=== PATIENT | female | born 1985 | race Caucasian/White ===

== ENCOUNTER 2016-12-16 18:44 | Emergency (ER) | payer BC ==
[2016-12-16 19:52] VITALS: BP 121/80
--- NOTE | 2016-12-16 20:16 | EDM.PDOC ---
ED HPI GI/ABDOMINAL - General Chief Complaint: Gastrointestinal Problem Stated Complaint: SHARP PAIN IN STOMACH,PASSING BLOOD IN URINE Time Seen by Provider: 12/16/16 19:55 Source of Information: Reports: Patient History Limitations: Reports: No limitations - History of Present Illness INITIAL COMMENTS - FREE TEXT/NARRATIVE: This 31 yo female patient reports to the ED due to abdominal pains and blood in the toilet. The patient reports she was at work at 1830 when she had some abdominal paint. The patient reports she went to the bathroom (BM and urine) and noticed blood in the stool after using the bathroom. The patient reports she does not have any pain at this time. The patient reports her last menstrual cycle was ended on 11/18/16. The patient reports that there is always a chance of . Symptom Onset Date: 12/16/16 Symptom Onset Time: 18:30 Timing/Duration: Reports: Resolved prior to arrival Location: generalized Quality: Reports: ache Severity: moderate - Related Data Allergies/ADRs: Allergies Allergy/AdvReac Type Severity Reaction Status Date / Time guaifenesin [From Mucinex] Allergy Lightheaded Verified 12/16/16 18:58 ness Home Meds: Home Meds . 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 OB/BYN History: misscarriage 8 years ago Musculoskeletal History: Reports: None Neurological History: Reports: None Psychiatric History: Reports: None Endocrine/Metabolic History: Reports: Obesity/BMI 30+ Hematologic History: Reports: None Immunologic History: Reports: None Oncologic (Cancer) History: Reports: None Dermatologic History: Reports: None - Infectious Disease History Infectious Disease History: Reports: Chicken pox - Past Surgical History Head Surgeries/Procedures: Reports: None Social & Family History - Family History Family Medical History: Noncontributory - Tobacco Use Smoking Status *Q: Never Smoker Second Hand Smoke Exposure: No - Caffeine Use Caffeine Use: Reports: None - Recreational Drug Use Recreational Drug Use: No - Sexual History Sexual History: Reports: Sexually active - Living Situation & Occupation Living situation: Reports: , with family Occupation: employed ED ROS GENERAL - Review of Systems Review Of Systems: ROS reveals no pertinent complaints other than HPI. ED EXAM, GI/ABD - Physical Exam Exam: See Below Exam Limited By: No limitations General Appearance: alert, WD/WN, no apparent distress Eyes: bilateral: normal appearance, EOMI Ears: normal external exam, normal canal, hearing grossly normal, normal TMs Nose: normal inspection, normal mucosa, no blood Throat/Mouth: Normal inspection, Normal lips, Normal teeth, Normal gums, Normal oropharynx, Normal voice, No airway compromise Head: atraumatic, normocephalic Neck: normal inspection, supple, non-tender, full range of motion Respiratory/Chest: no respiratory distress, lungs clear, normal breath sounds, no accessory muscle use, chest non-tender Cardiovascular: normal peripheral pulses, regular rate, rhythm, no edema, no gallop, no JVD, no murmur, no rub GI/Abdominal: normal bowel sounds, soft, non tender, no organomegaly, no distention, no abnormal bruit, no mass (Female) Exam: Deferred Rectal (Female) Exam: Normal rectal tone, Heme + stool, Hemorrhoids Back Exam: normal inspection, full range of motion, NT Extremities: normal inspection, normal range of motion, non-tender, normal capillary refill, no pedal edema Neurological: alert, oriented, CN II-XII intact, normal cognition, normal gait, normal reflexes, no motor/sensory deficits Psychiatric: normal affect, normal mood Skin Exam: Warm, Dry, Intact, Normal color, No rash Lymphatic: no adenopathy Course - Vital Signs Last Recorded V/S: Last Vital Signs Temp 36.3 C 12/16/16 19:51 Pulse 70 12/16/16 19:51 Resp 18 12/16/16 19:51 BP 121/80 12/16/16 19:51 Pulse Ox 98 12/16/16 19:51 - Orders/Labs/Meds Labs: Laboratory Tests 12/16/16 12/16/16 12/16/16 Range/Units 20:08 20:08 20:18 WBC 9.4 (5.0-10.0) 10^3/uL RBC 4.49 (4.2-5.4) 10^6/uL Hgb 13.1 (12.0-16.0) g/dL Hct 38.6 (37.0-47.0) % MCV 86.0 (80-100) fL MCH 29.2 (27.0-34.0) pg MCHC 33.9 (33.0-35.0) g/dL Plt Count 202 (150-450) 10^3/uL Neut % (Auto) 55.9 (42.2-75.2) % Lymph % (Auto) 32.5 (20.5-50.1) % [place] % (Auto) 9.7 H (2-8) % Eos % (Auto) 1.7 (1.0-3.0) % Baso % (Auto) 0.2 (0.0-1.0) % Sodium (135-145) mmol/L Potassium (3.6-5.0) mmol/L Chloride (101-111) mmol/L Carbon Dioxide (21.0-31.0) mmol/L Anion Gap BUN (7-18) mg/dL Creatinine (0.6-1.3) mg/dL Est Cr Clr Drug Dosing mL/min Estimated GFR (MDRD) BUN/Creatinine Ratio Glucose (74-105) mg/dL Calcium (8.4-10.2) mg/dl Total Bilirubin (0.2-1.0) mg/dL AST (10-42) IU/L ALT (10-60) IU/L Alkaline Phosphatase (42-121) IU/L Total Protein (6.7-8.2) g/dl Albumin (3.2-5.5) g/dl Globulin Albumin/Globulin Ratio Urine Color Yellow (YELLOW) Urine Appearance Slightly cloudy (CLEAR) Urine pH 6.5 (5.0-9.0) Ur Specific [place] 1.015 (1.005-1.030) Urine Protein Negative (NEGATIVE) Urine Glucose (UA) Negative (NEGATIVE) Urine Ketones Negative (NEGATIVE) Urine Occult Blood Negative (NEGATIVE) Urine Nitrite Negative (NEGATIVE) Urine Bilirubin Negative (NEGATIVE) Urine Urobilinogen 0.2 (0.2-1.0) mg/dL Ur Leukocyte Esterase Negative (NEGATIVE) Urine RBC 0-5 /HPF Urine WBC 0-5 (0-5/HPF) /HPF Ur Epithelial Cells Few /HPF Urine Bacteria Few (0-FEW/HPF) /HPF Urine HCG, Qual Negative 12/16/16 Range/Units 20:18 WBC (5.0-10.0) 10^3/uL RBC (4.2-5.4) 10^6/uL Hgb (12.0-16.0) g/dL Hct (37.0-47.0) % MCV (80-100) fL MCH (27.0-34.0) pg MCHC (33.0-35.0) g/dL Plt Count (150-450) 10^3/uL Neut % (Auto) (42.2-75.2) % Lymph % (Auto) (20.5-50.1) % [place] % (Auto) (2-8) % Eos % (Auto) (1.0-3.0) % Baso % (Auto) (0.0-1.0) % Sodium 137 (135-145) mmol/L Potassium 4.0 (3.6-5.0) mmol/L Chloride 100 L (101-111) mmol/L Carbon Dioxide 30.0 (21.0-31.0) mmol/L Anion Gap 11.0 BUN 19 H (7-18) mg/dL Creatinine 0.9 (0.6-1.3) mg/dL Est Cr Clr Drug Dosing 72.29 mL/min Estimated GFR (MDRD) > 60 BUN/Creatinine Ratio 21.11 Glucose 100 (74-105) mg/dL Calcium 9.3 (8.4-10.2) mg/dl Total Bilirubin 0.2 (0.2-1.0) mg/dL AST 19 (10-42) IU/L ALT 22 (10-60) IU/L Alkaline Phosphatase 69 (42-121) IU/L Total Protein 7.5 (6.7-8.2) g/dl Albumin 4.4 (3.2-5.5) g/dl Globulin 3.1 Albumin/Globulin Ratio 1.42 Urine Color (YELLOW) Urine Appearance (CLEAR) Urine pH (5.0-9.0) Ur Specific [place] (1.005-1.030) Urine Protein (NEGATIVE) Urine Glucose (UA) (NEGATIVE) Urine Ketones (NEGATIVE) Urine Occult Blood (NEGATIVE) Urine Nitrite (NEGATIVE) Urine Bilirubin (NEGATIVE) Urine Urobilinogen (0.2-1.0) mg/dL Ur Leukocyte Esterase (NEGATIVE) Urine RBC /HPF Urine WBC (0-5/HPF) /HPF Ur Epithelial Cells /HPF Urine Bacteria (0-FEW/HPF) /HPF Urine HCG, Qual Departure - Departure Time of Disposition: 21:14 Disposition: Home, Self-Care 01 Condition: fair Clinical Impression: Hemorrhoid thrombosis Instructions: Hemorrhoids, [id number] Forms: ED Department Discharge Care Plan Goals: The patient was advised of the examination and lab results during the visit. The patient was encouraged to use Preparation H and Tucks medicated pads to help reduce the hemorrhoidal tissue. If the patient has any additional symptoms or concerns, the patient should follow-up with her primary care facility or return to the emergency department.
[2016-12-16 20:42] LABS: CHLORIDE,CL 100 mmol/L (101-111); SODIUM,NA 137 mmol/L (135-145)
== END 2016-12-16 21:24 | disposition home or self-care (01) ==
LOC: DL.ED 18:44
DX: K64.5 Perianal venous thrombosis (principal); E66.9 Obesity, unspecified; Z88.8 Allergy status to other drugs, medicaments and biological substances
CPT/HCPCS: 36415; 80053; 81001; 81025; 82272; 85025; 99283

== ENCOUNTER 2018-03-27 20:31 | Emergency (ER) | payer SELFPAY ==
[2018-03-27 20:37] VITALS: BP 126/84
--- NOTE | 2018-03-27 20:48 | EDM.PDOC ---
ED HPI GENERAL MEDICAL PROBLEM - General Chief Complaint: Abdominal Pain Stated Complaint: pain fever [id number] Time Seen by Provider: 03/27/18 20:46 Source of Information: Reports: Patient History Limitations: Reports: No Limitations - History of Present Illness INITIAL COMMENTS - FREE TEXT/NARRATIVE: RLQ pain all day, ate DG and vomited, poss preg Right Lower Abdomen Pain Score (Numeric/FACES): 5 - Related Data Allergies Allergy/AdvReac Type Severity Reaction Status Date / Time guaifenesin [From Mucinex] Allergy Lightheaded Verified 03/27/18 20:34 ness Home Meds: Home Meds . 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 OB/BYN History: misscarriage 8 years ago Musculoskeletal History: Reports: None Neurological History: Reports: None Psychiatric History: Reports: None Endocrine/Metabolic History: Reports: Obesity/BMI 30+ Hematologic History: Reports: None Immunologic History: Reports: None Oncologic (Cancer) History: Reports: None Dermatologic History: Reports: None - Infectious Disease History Infectious Disease History: Reports: Chicken Pox - Past Surgical History Head Surgeries/Procedures: Reports: None Social & Family History - Family History Family Medical History: Noncontributory - Tobacco Use Smoking Status *Q: Never Smoker - Caffeine Use Caffeine Use: Reports: None - Recreational Drug Use Recreational Drug Use: No - Sexual History Sexual History: Reports: Sexually Active - Living Situation & Occupation Living situation: Reports: , with Family Occupation: Employed ED ROS GENERAL - Review of Systems Review Of Systems: ROS reveals no pertinent complaints other than HPI. ED EXAM, GI/ABD - Physical Exam Exam: See Below Exam Limited By: No Limitations General Appearance: Alert, WD/WN, Mild Distress, Other (discomfort) Ears: Hearing Grossly Normal Throat/Mouth: Normal Voice, No Airway Compromise Head: Atraumatic Neck: Non-Tender, Full Range of Motion Respiratory/Chest: No Respiratory Distress Cardiovascular: Regular Rate, Rhythm GI/Abdominal Exam: Tender, Abnormal Bowel Sounds, Other (BS hyper, RLQ tneder). No: Distended, Guarding, Rigid, Rebound Neurological: Alert, Oriented, Normal Cognition, Normal Gait, No Motor/Sensory Deficits Psychiatric: Normal Affect, Normal Mood Skin Exam: Warm, Dry, Normal Color Lymphatic: No Adenopathy Course - Vital Signs Last Recorded V/S: Last Vital Signs Temp 36.3 C 03/27/18 20:34 Pulse 83 03/27/18 20:34 Resp 18 03/27/18 20:34 BP 126/84 03/27/18 20:34 Pulse Ox 100 03/27/18 20:34 - Orders/Labs/Meds Orders: Active Orders 24 hr Category Date Time Status Loperamide [Imodium] Med 03/27/18 21:21 Once 2 mg PO ONETIME ONE Labs: Laboratory Tests 03/27/18 03/27/18 03/27/18 Range/Units 20:42 20:42 20:45 WBC 9.9 (5.0-10.0) 10^3/uL RBC 4.47 (4.2-5.4) 10^6/uL Hgb 11.9 L (12.0-16.0) g/dL Hct 35.6 L (37.0-47.0) % MCV 79.6 L D (80-100) fL MCH 26.6 L (27.0-34.0) pg MCHC 33.4 (33.0-35.0) g/dL Plt Count 260 (150-450) 10^3/uL Neut % (Auto) 54.9 (42.2-75.2) % Lymph % (Auto) 33.8 (20.5-50.1) % [place] % (Auto) 9.2 H (2-8) % Eos % (Auto) 1.7 (1.0-3.0) % Baso % (Auto) 0.4 (0.0-1.0) % Sodium (135-145) mmol/L Potassium (3.6-5.0) mmol/L Chloride (101-111) mmol/L Carbon Dioxide (21.0-31.0) mmol/L Anion Gap BUN (7-18) mg/dL Creatinine (0.6-1.3) mg/dL Est Cr Clr Drug Dosing mL/min Estimated GFR (MDRD) BUN/Creatinine Ratio Glucose (74-105) mg/dL Calcium (8.4-10.2) mg/dl Total Bilirubin (0.2-1.0) mg/dL AST (10-42) IU/L ALT (10-60) IU/L Alkaline Phosphatase (42-121) IU/L Total Protein (6.7-8.2) g/dl Albumin (3.2-5.5) g/dl Globulin Albumin/Globulin Ratio Urine Color Yellow (YELLOW) Urine Appearance Slightly cloudy (CLEAR) Urine pH 6.5 (5.0-9.0) Ur Specific [place] 1.025 (1.005-1.030) Urine Protein Trace H (NEGATIVE) Urine Glucose (UA) Negative (NEGATIVE) Urine Ketones Negative (NEGATIVE) Urine Occult Blood Negative (NEGATIVE) Urine Nitrite Negative (NEGATIVE) Urine Bilirubin Negative (NEGATIVE) Urine Urobilinogen 2.0 H (0.2-1.0) mg/dL Ur Leukocyte Esterase Negative (NEGATIVE) Urine RBC Not seen /HPF Urine WBC 5-10 H (0-5/HPF) /HPF Ur Epithelial Cells Many H /HPF Urine Bacteria Many H (0-FEW/HPF) /HPF Urine Mucus Moderate H /LPF Urine Other See note Urine HCG, Qual Negative 03/27/18 Range/Units 20:45 WBC (5.0-10.0) 10^3/uL RBC (4.2-5.4) 10^6/uL Hgb (12.0-16.0) g/dL Hct (37.0-47.0) % MCV (80-100) fL MCH (27.0-34.0) pg MCHC (33.0-35.0) g/dL Plt Count (150-450) 10^3/uL Neut % (Auto) (42.2-75.2) % Lymph % (Auto) (20.5-50.1) % [place] % (Auto) (2-8) % Eos % (Auto) (1.0-3.0) % Baso % (Auto) (0.0-1.0) % Sodium 137 (135-145) mmol/L Potassium 3.5 L (3.6-5.0) mmol/L Chloride 103 (101-111) mmol/L Carbon Dioxide 26.0 (21.0-31.0) mmol/L Anion Gap 11.5 BUN 14 (7-18) mg/dL Creatinine 0.8 (0.6-1.3) mg/dL Est Cr Clr Drug Dosing 80.59 mL/min Estimated GFR (MDRD) > 60 BUN/Creatinine Ratio 17.50 Glucose 130 H (74-105) mg/dL Calcium 9.1 (8.4-10.2) mg/dl Total Bilirubin < 0.1 L (0.2-1.0) mg/dL AST 22 (10-42) IU/L ALT 18 (10-60) IU/L Alkaline Phosphatase 75 (42-121) IU/L Total Protein 7.2 (6.7-8.2) g/dl Albumin 4.2 (3.2-5.5) g/dl Globulin 3.0 Albumin/Globulin Ratio 1.40 Urine Color (YELLOW) Urine Appearance (CLEAR) Urine pH (5.0-9.0) Ur Specific [place] (1.005-1.030) Urine Protein (NEGATIVE) Urine Glucose (UA) (NEGATIVE) Urine Ketones (NEGATIVE) Urine Occult Blood (NEGATIVE) Urine Nitrite (NEGATIVE) Urine Bilirubin (NEGATIVE) Urine Urobilinogen (0.2-1.0) mg/dL Ur Leukocyte Esterase (NEGATIVE) Urine RBC /HPF Urine WBC (0-5/HPF) /HPF Ur Epithelial Cells /HPF Urine Bacteria (0-FEW/HPF) /HPF Urine Mucus /LPF Urine Other Urine HCG, Qual Meds: Medications Discontinued Medications Generic Name Dose Route Start Last Admin Trade Name Freq PRN Reason Stop Dose Admin Ondansetron HCl 4 mg 03/27/18 20:59 03/27/18 21:03 Zofran IV 03/27/18 21:00 4 mg ONETIME ONE Administration - Re-Assessments/Exams Free Text/Narrative Re-Assessment/Exam: 03/27/18 21:21 reults discussed with pt who is better s/p zofran. Departure - Departure Time of Disposition: 21:22 Disposition: Home, Self-Care 01 Condition: Good Clinical Impression: Gastroenteritis - Discharge Information Instructions: Nausea and Vomiting, Adult, [id number] Forms: ED Department Discharge Additional Instructions: 1) avoid solid foods next 48 hours 2) have liquids 3) take tylenol or motrin a needed for fever 5) take imodium as needed for diarrhoea 6) recheck as needed rx given; bentyl 10mg bid prn x 6 zofran 4mg ODT bid prn x 6 - My Orders Last 24 Hours: My Active Orders 03/27/18 21:21 Loperamide [Imodium] 2 mg PO ONETIME ONE - Assessment/Plan Last 24 Hours: My Active Orders 03/27/18 21:21 Loperamide [Imodium] 2 mg PO ONETIME ONE
[2018-03-27] MEDS ORDERED: Ondansetron 4 MG/2 ML SDV IV ONE (20:59)
[2018-03-27 21:12] LABS: CHLORIDE,CL 103 mmol/L (101-111); SODIUM,NA 137 mmol/L (135-145)
[2018-03-27] MEDS ORDERED: Loperamide 2 MG Cap PO ONE (21:21)
== END 2018-03-27 21:52 | disposition home or self-care (01) ==
LOC: DL.ED 20:31
DX: K52.9 Noninfective gastroenteritis and colitis, unspecified (principal); Z88.8 Allergy status to other drugs, medicaments and biological substances
CPT/HCPCS: 36415; 80053; 81001; 81025; 85025; 96374; 99284; A9270; J2405; 99283

== ENCOUNTER 2021-09-27 12:43 | Emergency (ER) | payer SELFPAY ==
[2021-09-27 13:34] VITALS: BP 114/82; PULSE 86
--- NOTE | 2021-09-27 14:36 | EDM.PDOC ---
ED HPI GENERAL MEDICAL PROBLEM - General Chief Complaint: General Stated Complaint: COVID SYMPTOMS / TODAY NO TASTE OR SMELL Time Seen by Provider: 09/27/21 14:32 Source of Information: Reports: Patient History Limitations: Reports: No Limitations - History of Present Illness INITIAL COMMENTS - FREE TEXT/NARRATIVE: 36 y/o F states shes had a cold since Thursday and 12 hrs ago she lost her sense of taste and smell. She denies fever, chills, antunez, vision prob, sob, abd pn, ext pain, NVD. Has been eating and drinking ok. 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 Musculoskeletal History: Reports: None Neurological History: Reports: None Psychiatric History: Reports: None Endocrine/Metabolic History: Reports: Obesity/BMI 30+ Hematologic History: Reports: None Immunologic History: Reports: None Oncologic (Cancer) History: Reports: None Dermatologic History: Reports: None - Infectious Disease History Infectious Disease History: Reports: Chicken Pox - Past Surgical History Head Surgeries/Procedures: Reports: None Social & Family History - Family History Family Medical History: No Pertinent Family History - Tobacco Use Tobacco Use Status *Q: Never Tobacco User - Caffeine Use Caffeine Use: Reports: Energy Drinks Caffeine Use Comment: drinks energy drinks occasionally, has not had any since . - Recreational Drug Use Recreational Drug Use: No - Living Situation & Occupation Living situation: Reports: , with Family Occupation: Employed ED ROS GENERAL - Review of Systems Review Of Systems: Comprehensive ROS is negative, except as noted in HPI. ED EXAM, GENERAL - Physical Exam Exam: See Below Exam Limited By: No Limitations General Appearance: Alert, WD/WN, No Apparent Distress Ears: Normal External Exam, Normal Canal, Hearing Grossly Normal, Normal TMs Nose: Normal Inspection, Normal Mucosa, No Blood Throat/Mouth: Normal Inspection, Normal Lips, Normal Teeth, Normal Gums, Normal Oropharynx, Normal Voice, No Airway Compromise Head: Atraumatic, Normocephalic Neck: Normal Inspection, Supple, Non-Tender, Full Range of Motion Respiratory/Chest: No Respiratory Distress, Lungs Clear, Normal Breath Sounds, No Accessory Muscle Use, Chest Non-Tender Cardiovascular: Normal Peripheral Pulses, Regular Rate, Rhythm, No Edema, No Gallop, No JVD, No Murmur, No Rub GI/Abdominal: Soft, Non-Tender Back Exam: Normal Inspection, Full Range of Motion Extremities: Normal Inspection, Normal Range of Motion, Non-Tender, Normal Capillary Refill, No Pedal Edema Skin Exam: Warm, Dry, Intact Course - Vital Signs Last Recorded V/S: Last Vital Signs Temp 99.5 F 09/27/21 13:30 Pulse 86 09/27/21 13:30 Resp 18 09/27/21 13:30 BP 114/82 09/27/21 13:30 Pulse Ox 98 09/27/21 13:30 - Orders/Labs/Meds Labs: Laboratory Tests 09/27/21 Range/Units 13:27 SARS-CoV-2 RNA (SWETA) Positive H (NEGATIVE) Departure - Departure Time of Disposition: 14:34 Disposition: Home, Self-Care 01 Condition: Good Clinical Impression: COVID-19 - Discharge Information *PRESCRIPTION DRUG MONITORING PROGRAM REVIEWED*: Not Applicable *COPY OF PRESCRIPTION DRUG MONITORING REPORT IN PATIENT YANDY: Not Applicable Instructions: 10 Things You Can Do to Manage Your COVID-19 Symptoms at Home - [facility] (04/26/2021) Additional Instructions: Use tylenol and Ibuprofen for pain adn fever control as needed. Isolate for ten days from the onset of your symptoms. Your family needs to quarantine as well as they have been exposed to COVID. If any new symptoms or concerns develop contact your primary care facility or return to the ER. Sepsis Event Note (ED) - Evaluation Sepsis Screening Result: No Definite Risk - Focused Exam Vital Signs: Vital Signs Temp Pulse Resp BP Pulse Ox 09/27/21 13:30 99.5 F 86 18 114/82 98
== END 2021-09-27 14:40 | disposition home or self-care (01) ==
LOC: DL.ED 12:43
DX: U07.1 COVID-19 (principal); E66.9 Obesity, unspecified; Z88.8 Allergy status to other drugs, medicaments and biological substances; Z68.34 Body mass index [BMI] 34.0-34.9, adult
CPT/HCPCS: 99283; U0002

== ENCOUNTER 2021-11-16 07:07 | Emergency (ER) | payer OTHER ==
[2021-11-16 07:30] VITALS: BP 125/80; PULSE 90
[2021-11-16] MEDS ORDERED: HYDROmorphone 1 MG/ML Syringe IM ONE (08:22)
[2021-11-16] MEDS ORDERED: HYDROmorphone 1 MG/ML Syringe IV ONE (08:22)
[2021-11-16] MEDS ORDERED: Ondansetron 4 MG Tab.DIS PO ONE (08:23)
[2021-11-16] MEDS ORDERED: Sodium Chloride 0.9% 10 ML Syringe FLUSH PRN (08:24)
[2021-11-16] MEDS ORDERED: Ondansetron 4 MG/2 ML SDV IVPUSH ONE (08:35)
[2021-11-16] MEDS: Ondansetron 4 MG/2 ML SDV ONE ×2 (08:36→08:43)
[2021-11-16 09:02] LABS: SODIUM,NA 135 mmol/L (136-145)
[2021-11-16] MEDS ORDERED: Sodium Chloride 0.9% 1,000 ML IV ONE (09:05)
[2021-11-16] MEDS ORDERED: Ketorolac 30 MG/ML SDV IVPUSH ONE (09:05)
[2021-11-16 09:13] LABS: ANION GAP 13.8 mEq/L (7-13); CHLORIDE,CL 104 mmol/L (98-107)
[2021-11-16 09:17] LABS: PTT,PARTIAL THROMBOPLSTIN TIME 20.5 SEC (22.0-34.0)
[2021-11-16] MEDS ORDERED: Misoprostol 100 MCG Tab PO ONE (10:04)
[2021-11-16] MEDS ORDERED: Misoprostol 400 MCG (4 X 100 MCG TAB) PO ONE (10:16)
== END 2021-11-16 12:00 | disposition home or self-care (01) ==
LOC: DL.ED 07:07
DX: O03.9 Complete or unspecified spontaneous abortion without complication (principal)
CPT/HCPCS: 36415; 80053; 81001; 85025; 85610; 85730; 96374; 96375; 99284-25; A9270-GY; J1170; J1885; J2405; J7030

== ENCOUNTER 2022-02-27 15:12 | Emergency (ER) | payer OTHER ==
[2022-02-27 16:41] VITALS: BP 110/79; PULSE 77
== END 2022-02-27 17:40 | disposition home or self-care (01) ==
LOC: DL.ED 15:12
DX: Z77.098 Contact with and (suspected) exposure to other hazardous, chiefly nonmedicinal, chemicals (principal); E66.9 Obesity, unspecified; Z68.37 Body mass index [BMI] 37.0-37.9, adult; Z86.16 Personal history of COVID-19; Z88.8 Allergy status to other drugs, medicaments and biological substances
CPT/HCPCS: 99283

== ENCOUNTER 2022-04-08 22:01 | Emergency (ER) | payer SELFPAY ==
[2022-04-08] MEDS ORDERED: Sodium Chloride 0.9% 1,000 ML IV ONE (23:48)
[2022-04-08 23:59] LABS: AMPHETAMINES,URINE NEGATIVE (NEGATIVE); BARBITURATES,URINE NEGATIVE (NEGATIVE); BENZODIAZEPINE,URINE NEGATIVE (NEGATIVE); MDMA (ECSTASY), URINE NEGATIVE (NEGATIVE); METHADONE,URINE NEGATIVE (NEGATIVE); METHAMPHETAMINES,URINE NEGATIVE (NEGATIVE); OPIATES,URINE NEGATIVE (NEGATIVE); OXYCODONE,URINE NEGATIVE (NEGATIVE); PHENCYCLIDINE,URINE NEGATIVE (NEGATIVE); TCA,URINE NEGATIVE (NEGATIVE)
[2022-04-09] LABS: ANION GAP 13.7 mEq/L (7-13)
[2022-04-09] MEDS ORDERED: Sodium Chloride 0.9% 1,000 ML IV ONE (01:28)
[2022-04-09 05:31] VITALS: BP 71/40; PULSE 66
[2022-04-09] MEDS ORDERED: Lactated Ringers 1,000 ML IV ONE (05:50)
== END 2022-04-09 06:42 ==
LOC: DL.ED 22:01
DX: O99.891 Other specified diseases and conditions complicating pregnancy (principal); R10.30 Lower abdominal pain, unspecified; R55 Syncope and collapse; Z88.8 Allergy status to other drugs, medicaments and biological substances; Z86.16 Personal history of COVID-19; Z87.891 Personal history of nicotine dependence; Z3A.01 Less than 8 weeks gestation of pregnancy; Z20.822 Contact with and (suspected) exposure to COVID-19
CPT/HCPCS: 36415; 76815; 76817; 80053; 80305; 81001; 81025; 83605; 84702; 85025; 87040; 87635; 93005; 93010; 96360; 96361; 99284; 99285; J7030; J7120; U0002

== ENCOUNTER 2024-09-08 20:49 | Emergency (ER) | payer BC ==
[2024-09-08 21:23] VITALS: BP 129/83; PULSE 99
[2024-09-08] MEDS: Ketorolac 30 MG/ML SDV IM ONE (21:43)
[2024-09-08] MEDS: Acetaminophen 500 MG Tab PO ONE (21:43)
[2024-09-08] MEDS: Take Home: Ondansetron 4 MG Tab.DIS, 5 Tab Pack PO ONE (21:44)
== END 2024-09-08 21:57 | disposition home or self-care (01) ==
LOC: DL.ED 20:49
DX: B34.9 Viral infection, unspecified (principal); E66.9 Obesity, unspecified; Z86.16 Personal history of COVID-19; Z88.8 Allergy status to other drugs, medicaments and biological substances; Z68.37 Body mass index [BMI] 37.0-37.9, adult
CPT/HCPCS: 96372; 99282; 99283; A9270; J1885; Q0162

== ENCOUNTER 2025-04-21 06:24 | Day surgery (SDC) | payer BC ==
[2025-04-21] MEDS ORDERED: Propofol 200 MG/20 ML SDV IV ONE (06:25)
[2025-04-21] MEDS ORDERED: Lactated Ringers 1,000 ML IV ONE (06:25)
[2025-04-21] MEDS: Lactated Ringers 1,000 ML IV SCH (06:58)
[2025-04-21 09:09] VITALS: BP 101/67; PULSE 58
[2025-04-21] MEDS ORDERED: Propofol 200 MG/20 ML SDV ONE (09:09)
== END 2025-04-21 09:02 | disposition home or self-care (01) ==
LOC: DL.ENDO 06:24
PROVIDERS: ATTEND Internal Medicine Gastroenterology
DX: K62.5 Hemorrhage of anus and rectum (principal); K64.4 Residual hemorrhoidal skin tags; K64.8 Other hemorrhoids; D50.9 Iron deficiency anemia, unspecified; Z88.8 Allergy status to other drugs, medicaments and biological substances; E66.9 Obesity, unspecified; Z68.38 Body mass index [BMI] 38.0-38.9, adult
CPT/HCPCS: 36415; 45378; 84703; J2704; J7120; S5010